=== PATIENT | female | born 1995 | race Two or more races ===

== ENCOUNTER 2016-12-25 13:27 | Inpatient (IN) | payer MEDICAID ==
[~2016-12-25] VITALS: Ht 162.6 cm; Wt 70.4 kg
--- NOTE | ~2016-12-25 | OR ---
PATIENT'S NAME: SANDRA NIÑO [facility] AGE: 21 [address] ROOM: [address] [address] LOCATION: [facility] ADMIT DATE: 12/25/2016 OR/Procedure Report DISCHARGE DATE: FAMILY PHYSICIAN: Ryan Hill MD ATTENDING PHYSICIAN: Ryan Hill SURGEON: Ryan Hill MD RAILROAD CRANE OPERATOR: No assistants. DATE OF PROCEDURE: 12/25/2016 PREOPERATIVE DIAGNOSIS: Term intrauterine , spontaneous labor. POSTOPERATIVE DIAGNOSIS: Term intrauterine , spontaneous labor. PROCEDURE: Normal spontaneous vaginal delivery. ANESTHESIA: Local for repair. ESTIMATED BLOOD LOSS: 100 mL. CLINICAL INDICATION: Sandra Whalen is a 21-year-old , female, 3, para 1, at approximately 37 weeks' gestational age. She would enter in labor spontaneously and then presented 8 cm dilated. She progressed rapidly to complete cervical dilatation and push effectively. FINDINGS: Delivery of a viable 6 pounds and 7 ounces female , score 8 at 1 minute, 9 at 5 minutes. TECHNICAL PROCEDURE: The patient was left in Labor and Delivery room, prepped and draped in the usual fashion. She would deliver a viable 6 pounds and 7 ounce female over an intact perineum. The umbilical cord was doubly clamped. The intervening segments cut. was handed off to the mother and later to awaiting nursing services. umbilical arterial cord blood and venous cord blood were obtained for blood gas analysis and routine studies respectively. Placenta delivered spontaneously intact with 3 vessels. Exploration of the cervix and vaginal sidewalls noted them to be intact with the exception of a small 1 to 2 cm second-degree perineal laceration. This was injected with Xylocaine and repaired using 2 single interrupted stitches of 0 Vicryl suture. Good hemostasis was obtained. The patient tolerated the procedure well and remained in Labor and Delivery room in good condition as did the infant. RYAN HILL MD PATIENT'S NAME: SANDRA NIÑO [facility] AGE: 21 Y [address] ROOM: [address] [address] LOCATION: [facility] ADMIT DATE: 12/25/2016 OR/Procedure Report DISCHARGE DATE: FAMILY PHYSICIAN: Ryan Hill MD ATTENDING PHYSICIAN: Ryan Hill/melanie /[id number] d: 12/25/16 1900 t: 01/03/17 1830, OPERATIVE SUMMARY
[2016-12-25] MEDS ORDERED: PRENATAL 1+1)(P1 TAB PO (13:39)
[2016-12-25 14:08] LABS: BASOPHIL % 0.1 %; EOSINOPHIL % 0.1 %; HEMATOCRIT 39.4 % (33.0-46.0); HEMOGLOBIN 13.2 g/dL (11.0-15.0); IMMATURE GRANULOCYTE # 0.1 K/uL (0.0-0.3); IMMATURE GRANULOCYTE % 0.5 %; LYMPHOCYTE # 1.8 K/uL (0.8-4.0); LYMPHOCYTE % 13.2 %; MCH 28.7 pg (27.0-34.0); MCHC 33.5 gm/dL (32.0-36.5); MCV 85.7 fl (83.0-98.0); MONOCYTE # 0.7 K/uL (0.0-1.0); MONOCYTE % 5.1 %; NRBC % 0 /100WBC (0-0.00); PLATELET COUNT 267 K/uL (150-450); RDW-CV 14.2 % (11.9-14.6); WBC 13.6 K/uL (4.0-11.0)
[2016-12-26 05:41] LABS: BASOPHIL % 0.1 %; EOSINOPHIL % 0.3 %; HEMATOCRIT 32.8 % (33.0-46.0); HEMOGLOBIN 10.8 g/dL (11.0-15.0); IMMATURE GRANULOCYTE # 0.1 K/uL (0.0-0.3); IMMATURE GRANULOCYTE % 0.4 %; LYMPHOCYTE # 2.7 K/uL (0.8-4.0); LYMPHOCYTE % 20.1 %; MCH 28.6 pg (27.0-34.0); MCHC 32.9 gm/dL (32.0-36.5); MONOCYTE # 1.2 K/uL (0.0-1.0); MONOCYTE % 8.9 %; MPV 9.8 fl (9.4-12.4); NEUTROPHIL # (ANC) 9.6 K/uL (1.8-7.8); NEUTROPHIL % 70.2 %; NRBC % 0 /100WBC (0-0.00); PLATELET COUNT 230 K/uL (150-450); RBC 3.77 M/uL (3.50-5.00); RDW-CV 14.5 % (11.9-14.6); WBC 13.6 K/uL (4.0-11.0)
--- NOTE | 2016-12-26 05:52 | NUR ---
VSS. Pain rating 5. Last had Motrin and Perc around 0430. Fundus at umbilicus, firm, midline. Small flow. Nipples intact. Voiding independently. Ambulates in room.
--- NOTE | 2016-12-26 18:00 | NUR ---
12/26/16 1800: Requests gasper/josh gauthier. Good. Working on Cert. Video's watched for . Iv d/c'ed. Infant well. All purpose nipple ointment explained and given.
[2016-12-27] MEDS ORDERED: PERCOCET 5-3251 EACH PO (11:49)
== END 2016-12-27 13:45 | disposition disaster alternative care site (69) | DRG 775 ==
LOC: GOBM 13:27 → GOBS 13:27 → GOBM 13:28 → GOBS 13:39
PROVIDERS: ADMIT Obstetrics & Gynecology
DX: O70.1 Second degree perineal laceration during delivery (principal); Z37.0 Single live birth; Z3A.39 39 weeks gestation of pregnancy
CPT/HCPCS: J2001; J2590; J3010; J7120